=== PATIENT | female | born 1945 | race Caucasian/White ===

== ENCOUNTER 2024-12-15 20:04 | Inpatient (IN) | payer OTHER, SELFPAY ==
[2024-12-15] VITALS (9 sets, daily range): BP systolic 115–142; BP diastolic 48–78; BMI 25.4; BMI 25.5
--- NOTE | 2024-12-15 17:17 | ED.GENMED ---
History of Present Illness
General
Chief Complaint: Fall
Source: patient and family
Exam Limitations: none
Time Seen by Provider: 12/15/24 17:08
Nursing documentation reviewed up to this point in time: agreed with
History of Present Illness
History of Present Illness:
Pleasant 79-year-old female presents to the emergency department with right hip pain. She states that she had a mechanical fall. Patient was walking up steps with a glass of lemonade in her hand that she missed the first step. She did not want to
drop the lemonade so she fell. She is in town visiting family. Patient denies head injury or loss of consciousness. She reports no other pain. Patient does have a relative allergy to morphine. She states that 13 years ago when she got it she
became confused. She did have her gallbladder removed several years ago but is unsure of what type of pain relief she received. She states that she is willing to try Dilaudid for pain control. Denies fever, chills, nausea or vomiting.
Review of Systems
Review of Systems
Allergies reviewed?: Yes
Other source history: family
All Other Systems: ROS reviewed and negative except as documented in HPI and ROS
Constitutional: Reports no symptoms
EENT: Reports no symptoms
Respiratory: Reports no symptoms
Cardiac: Reports no symptoms
ABD/GI: Reports no symptoms
: Denies difficulty voiding
Musculoskeletal: Reports joint pain and muscle pain
Skin: Reports no symptoms
Neurological: Reports no symptoms
Endocrine: Reports no symptoms
Hematologic/Lymphatic: Reports no symptoms
Psychiatric: Reports anxiety
Phy Exam
General Physical Exam
General Presentation: moderate distress
General Skin: warm and dry
General Habitus: normal
General Mental: alert
General Hydration: appears well hydrated
ENT Exam
ENT Exam: EOMI, pharynx normal, neck supple and normocephalic
Eye Exam
Eye Exam: PERRL, cornea clear and conjunctiva normal
Cardiovascular Exam
Cardiovascular Exam: regular rate/rhythm and no edema
Pulmonary Exam
Pulmonary Exam: lungs clear, no respiratory distress, no rales, no crackles, no rhonchi, no stridor, no wheezing and no cough
Gastrointestinal Exam
Gastrointestinal Exam: normal bowel sounds, non tender, soft, no organomegaly, no pulsatile mass and non distended
Neurological Exam
Neurological Exam: alert, oriented x3, no motor deficits and speech normal
Musculoskeletal Exam
Musculoskeletal Exam: full ROM and no edema
Skin Exam
Skin Exam: normal color, warm/dry, no rash and no petechia
Psychiatric Exam
Psychiatric Exam: normal mood/affect
Course
Orders/Labs/Results
Orders:
Orders
12/15/24 17:16
HYDROmorphone [Dilaudid] 0.25 mg IV NOW STA
12/15/24 17:17
Hip, Right 2-3 Views [CR Hip - RT w/wo Pel 2-3 Vw*] Urgent
Comment:
Reason For Exam: pain after a fall
Include a pelvis x-ray?: Yes
12/15/24 17:18
Electrocardiogram (*1) Urgent
Reason for Study: PreOp
EKG- Treatment ONCE
12/15/24 17:20
Ondansetron Injectable [Zofran] 4 mg .ROUTE .STK-MED ONE
12/15/24 17:22
Ondansetron Injectable [Zofran] 4 mg IV NOW STA
12/15/24 17:23
Complete Blood Count/With Diff Urgent
Comprehensive Metabolic Panel Urgent
PTT Urgent
Prothrombin Time Urgent
12/15/24 17:58
0.9% Sodium Chloride 1000 ml [Nss] 1,000 ml IV 250 mls/hr
12/16/24 Breakfast
NPO
Allow oral meds: Yes
Allow clear liquids: 4hrs prior to procedure
NPO with Ice Chips: Yes
Comment: may have unrestricted clear liquid up to 4 hrs prior to scheduled procedure
Abnormal Lab Results
12/15/24
17:23
RBC 3.38 L 10^6/uL
(4.20-5.40)
Hgb 10.5 L g/dL
(12.0-16.0)
Hct 31.0 L %
(37.0-47.0)
MCH 31.1 H pg
(27.0-31.0)
MPV 12.3 H fL
(7.4-10.4)
Abs Immat Gran (auto) 0.1 H 10^3/uL
(0-0.05)
Absolute Monos (auto) 0.8 H 10^3/uL
(0.1-0.6)
Immature Gran % 0.7 H %
(0-0.5)
BUN 25 H mg/dl
(7-17)
Creatinine 1.1 H mg/dL
(0.6-1.0)
Total Protein 5.4 L g/dl
(6.3-8.2)
12/15/24 17:23
12/15/24 17:23
Vital Signs
Initial and Last Documented VS:
Initial Vital Signs
BP
133/51
12/15/24 16:48
Last Documented Vital Signs
Temp Pulse Resp BP Pulse Ox
97.8 F 65 16 115/54 100
12/15/24 16:52 12/15/24 16:52 12/15/24 16:52 12/15/24 18:01 12/15/24 18:01
*Radiology
Radiology exam reviewed: radiology read reviewed (Comminuted mildly displaced intertrochanteric right femur fracture with mild varus angulation. No intra-articular extension or dislocation.)
*Critical Care Note
Total Time (30-74mins, 75-104mins- exclusive of procedures): Not Applicable
ED Attending Note
-
Portions of this chart may have been created with voice recognition software.� Occasional wrong word or��sound alike� substitutions may have occurred due to the inherent limitations of voice recognition software.
Discharge Plan
Departure
Patient Disposition: Admit
Date of Disposition: 12/15/24
Time of Disposition: 19:00
Admit to: Med/Surg
Presentation/result/management discussed w/ accepting MD/DO: Hospitalist
Patient with high blood pressure during this ER visit?: Yes
Condition: Fair
Discharge Problem:
Closed comminuted intertrochanteric fracture of femur
Prescriptions:
No Action
Unobtainable
0
Referrals:
Red Chen, [Family Provider] -
Interventions
Interventions:
*Risk Screen - Suicide Last Done: 12/15/24 16:52
*General Assessment Last Done: 12/15/24 16:52
*Neglect/Abuse Screening Last Done: 12/15/24 16:52
*ED- Fall Risk Assessment Last Done: 12/15/24 16:52
ED-Musculoskeletal Assessment Last Done: 12/15/24 16:52
ED- Neurological Assessment Last Done: 12/15/24 16:52
ED-Skin Assessment Last Done: 12/15/24 16:52
Discharge Date and Time
Print Language: KAZAKH
[2024-12-15] MEDS: DILAUDID 0.25 MG IV ×2 (17:26→19:43)
[2024-12-15] MEDS: ZOFRAN 4 MG IV (17:26)
[2024-12-15 17:43] LABS: % Basophils 0.5 % (0-2); % Eosinophils 0.7 % (0-6); % Immature Granulocytes 0.7 % (0-0.5); % Lymphocytes 28.1 % (20.5-51.1); % Monocytes 8.2 % (1.7-9.3); % Neutrophils 61.8 % (42.2-75.2); Absolute Basophils 0.1 10^3/uL (0-0.2); Absolute Eosinophils 0.1 10^3/uL (0-0.7); Absolute Immature Granulocytes 0.1 10^3/uL (0-0.05); Absolute Lymphocytes 2.7 10^3/uL (1.2-3.4); Absolute Monocytes 0.8 10^3/uL (0.1-0.6); Absolute Neutrophils 5.9 10^3/uL (1.4-6.5); Hemoglobin 10.5 g/dL (12.0-16.0); Mean Corp Hgb Conc. 33.9 g/dL (33.0-37.0); Mean Corpuscular Hgb 31.1 pg (27.0-31.0); Mean Corpuscular Volume 91.7 fL (81.0-99.0); Mean Platelet Volume 12.3 fL (7.4-10.4); Nucleated Red Blood Cells % 0 %; Platelet Count 134 10^3/uL (130-400); Red Blood Cell Count 3.38 10^6/uL (4.20-5.40); Red Cell Dist. Width 12.6 % (11.5-14.5); White Blood Cell Count 9.6 10^3/uL (4.8-10.8)
[2024-12-15 17:51] LABS: APTT 23.6 Sec (23.4-35.0); PT 13.5 Sec (11.4-14.6)
[2024-12-15 17:54] LABS: ALT (SGPT) 12 U/L (0-35); AST (SGOT) 20 U/L (14-36); Albumin 3.6 g/dl (3.5-5.0); Alkaline Phosphatase 43 U/L (38-126); Blood Urea Nitrogen 25 mg/dl (7-17); Calcium 8.6 mg/dl (8.4-10.2); Carbon Dioxide 28 mmol/L (22-30); Chloride 105 mmol/L (98-107); Estimated Creatinine Clearance 32 ml/min; Glucose 92 mg/dl (70-99); Potassium 3.9 mmol/L (3.5-5.1); Sodium 141 mmol/L (135-145); Total Bilirubin 0.5 mg/dl (0.2-1.3); Total Protein 5.4 g/dl (6.3-8.2); eGFR 51.43
[2024-12-15] MEDS: NSS 1000 IV (18:38)
--- NOTE | 2024-12-15 19:02 | HPS.HSE ---
Family Physician
-
Family Physician: Red Chen, DO
Chief Complaint
-
Fall and hip fracture
History of Present Illness
This is a 79-year-old female who has a past medical history of lymphoma for which she is on or oral oral suppressive agent twice daily, prior history of endometrial cancer status post hysterectomy and radiation who presents to the emergency
department from home following a mechanical fall while visiting our system.
Patient reports walking across a flight of stairs to was the home when she misjudged a step slipped and fell. She denied loss of consciousness. She is unsure what she is hit her head but did not think so. She has no headache. She denies any pain
in her head otherwise. She reports pain in her hip and had difficulty ambulating immediately afterwards.
Patient denies any other episodes of fall. She is not on any blood thinners.
On arrival in the emergency department she had a blood pressure of 115/54, pulse of 65 respiratory rate of 16 temperature of 97.8. She is satting 100% on room air.
ECG shows a normal sinus rhythm at a rate of 65.
CBC shows a white count of 9.6, hemoglobin 10.5, platelet count 134. Electrolytes were within normal range. BUN/creatinine were 25 and 1.1 with a glucose of 92.
The x-ray of the hip shows a right comminuted and mildly displaced intertrochanteric fracture of the right femur.
Medical History
Past Medical History
Past Medical History: Reports Cancer (Lymphoma, history of endometrial cancer)
Past Surgical History: Reports Gynocological (Status post hysterectomy) and Tonsilectomy
Social History
Tobacco: Non-smoker
Alcohol: None
Drug: None
Personal: Single
Living: Alone
Family History
Family History: Not pertinent
Allergies / Home Medications
Allergies reflects when Allergies were last updated in [facility].
Home Medications with original date entered in [facility]
Allergy/Medication List:
Allergies
Allergy/AdvReac Type Severity Reaction Status Date / Time
morphine Allergy Unknown Verified 12/15/24 16:51
Home Medications
Zanubrutinib 80 mg tablet, take 160 mg p.o. twice daily
Review of Systems
-
History Source: Patient
Constitutional: Reports No Symptoms
EENT: Reports No Symptoms
Respiratory: Reports No Symptoms
Cardiac: Reports No Symptoms
Abdomen/GI: Reports No Symptoms
: Reports No Symptoms
Musculoskeletal: Reports Joint Pain
Skin: Reports No Symptoms
Neurological: Reports No Symptoms
Endocrine: Reports No Symptoms
Hematologic/Lymphatic: Reports No Symptoms
Psych: Reports No Symptoms
Physical Exam
Vital Signs
Vital Signs
Temp Pulse Resp BP Pulse Ox
97.8 F 65 16 115/54 100
12/15/24 16:52 12/15/24 16:52 12/15/24 16:52 12/15/24 18:01 12/15/24 18:01
Physical Exam
General: Well Developed, Well Nourished and Pain
HEENT: NormoCephalic, Anicteric, Moist mucous membranes and Atraumatic
Respiratory: Clear
Cardiac: S1/S2 and Regular Rhythm
Breast: Deferred by me
GI: Soft, Non Tender, Non Distended and Normal Bowel Sounds
Rectal: Deferred by Provider
Genito-urinary: Deferred by me
Musculoskeletal: No Clubbing, No Cyanosis and No Edema
Skin: Warm
Neuro: AO x 3 and Nonfocal/grossly intact
Hematologic/Lymphatic: No Lymphadenopathy
Psych: Calm
Laboratory Results
-
12/15/24 17:23
12/15/24 17:23
Laboratory Results
PT 13.5 Sec (11.4-14.6) 12/15/24 17:23
INR 1.00 12/15/24 17:23
APTT 23.6 Sec (23.4-35.0) 12/15/24 17:23
Total Bilirubin 0.5 mg/dl (0.2-1.3) 12/15/24 17:23
AST 20 U/L (14-36) 12/15/24 17:23
ALT 12 U/L (0-35) 12/15/24 17:23
Alkaline Phosphatase 43 U/L (38-126) 12/15/24 17:23
Data Reviewed
-
Diagnostic Radiology: Report Reviewed by me
Medical Tests (Nuc Med, Echo, EKG etc): Image Personally Visualized and interpreted
Lab Data: Labs Reviewed by me
Old Records: Reviewed
Impression/Plan
-
IMPRESSION:
Patient is a 79-year-old female with a history of lymphoma currently on Zanubrutinib status post mechanical fall with right-sided comminuted, mild displaced intertrochanteric femoral fracture. There is no head strike. There was no loss of
consciousness. She is not on any blood thinners however on zanubrutinib
PLAN:
1. Hip Fracture 2/2 mechanical fall
- admit to med/surg
- npo after midnight
- no thinners
- pain control, no weight bearing for now
- DVT PPX with SCDs pending hip surgery
- discussed Zanubrutinib with heme/onc, to hold brent-operatively
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
- surgery consult
Full Code
--- NOTE | 2024-12-15 21:30 | PTCARENOTE ---
A 79F pt arrived from ED 21:14 post mechanical fall has a fx R femur, also has a scratch in the area of her R groin. PMH of lymphoma for which she is on or oral oral suppressive agent twice daily, prior history of endometrial cancer status post
hysterectomy and radiation. Pt is on a static overlay, bed is in a low position, pt is using a Purewick, she is NPO at midnight but is permitted to have oral meds and clears up to 4 hours before surgery. Pt took scheduled Tylenol & is using an ice
pack to her R hip, at this time she does not want any additional pain medication. Pt's call light is in reach and her care is ongoing.
[2024-12-15] MEDS: SENOKOT 17.2 MG PO (22:20)
[2024-12-15] MEDS: COLACE 100 MG PO (22:20)
[2024-12-15] MEDS: TYLENOL 650 MG PO (22:20)
[2024-12-16] VITALS (16 sets, daily range): BP systolic 59–122; BP diastolic 38–51
[2024-12-16] MEDS: TYLENOL 650 MG PO ×5 (00:26→21:35)
--- NOTE | 2024-12-16 05:59 | CON.ORTHO ---
Consultation
-
Date/Time Consultation Requested: December 29
Date/Time Consultation Performed: December 29
Requesting Provider: Horace
Performing Provider: Michelle Gottlieb
Reason for Consultation: Right hip fracture
Consultation - Orthopedics
History
History of Present Illness:
79-year-old female with PMH of lymphoma and endometrial cancer presented to the emergency department yesterday with right hip pain. Unfortunately the fall was mechanical. She is in town visiting family. Patient was walking up steps with a glass of
lemonade in her hand and missed the first step. Patient denies head injury or LOC. No prodrome. No prior right hip issues or injuries. Denies fevers or chills. Our orthopedic specialty team has been requested with regards to her right hip fracture
and for the consideration of surgical fixation.
Past Medical History:
Lymphoma
Endometrial cancer
Past Surgical History:
Hysterectomy
Tonsillectomy
Social History:
Tobacco: Non-smoker
Alcohol: None
Drug: None
Personal: Single
Living: Alone
Family History:
Not pertinent
ROS:
12 point negative except for those mentioned in HPI
Allergies / Home Medications
Allergy/AdvReac Type Severity Reaction Status Date / Time
morphine Allergy Unknown Verified 12/15/24 16:51
�Medication �Instructions �Recorded
zanubrutinib 80 mg capsule 160 mg PO BID 12/15/24
Vital Signs / Lab Results
Temp Pulse Resp BP Pulse Ox
98.2 F 71 17 124/51 100
12/15/24 23:14 12/15/24 23:14 12/15/24 23:14 12/15/24 23:14 12/15/24 23:14
12/15/24 17:23
12/15/24 17:23
Assessment / Plan
PE: Afeb. Bedrest. Right hip skin intact. A bit edematous. RLE short and externally rotated. generalize palpation of the right hip is painful. + logroll. Deferred range of motion due to known fracture. Right knee is nontender. Calf supple and
nontender. DNVI RLE
Xrays: Comminuted RIGHT IT fracture in slight varus
Impression: CHARLENE
Plan: At length discussion bedside with the patient yields her understanding to the nature of her RIGHT hip fracture. All nonoperative and operative management discussed, including the RBAs of each form of management. After discussing all the
associated risks of surgery she has elected to proceed. this will be arranged under the direction of Dr. Gottlieb as his and the OR's availability permits. Briefly discussed the postop and rehab course associated with proposed surgery, and will
appreciate CM's assistance with disposition post hospital course. Patient is and will remain NPO for now, anticipating OR later today for gamma nail fixation of her RIGHT femur, assuming medical optimization and clearance for the procedure.
Operative site has been marked as the RIGHT hip. Surgical and blood consents have been signed and placed to the patient's chart. T&S requeted. ABX OCTOR. Will follow..
[2024-12-16] MEDS: COLACE 100 MG PO ×2 (08:56→21:35)
[2024-12-16] MEDS: SENOKOT PO ×2 (08:56→09:00)
--- NOTE | 2024-12-16 09:41 | CM ---
Cm reviewed medical records. CM met with patient in room. Patient confirmed demographics. Patient lives independently in a second floor apartment with NO elevator access. Patient does have a history of VN for management of Pleurx. Patient has been
discharge from VN services. Patient does not have a history of SNF or DME. Patient is active with her PCP and uses [facility] for medication services.
CM discuss briefly discharge planning would depend on PT evaluations.. Of Note , patient is on twice a day PO chemotherapy for treatment of Lymphoma.
PLAN: Patient for OR today, pending clinical outcome and PT evaluations.
--- NOTE | 2024-12-16 10:28 | W.PN.HOSP.TC ---
Today's Communication/Plan
-
Medically cleared for gamma nail fixation of right femur.
Hold Brustanleya
Assessment / Plan
Assessment / Plan
Impression:
Patient is a 79-year-old female with a history of lymphoma currently on Zanubrutinib status post mechanical fall with right-sided comminuted, mild displaced intertrochanteric femoral fracture. There is no head strike. There was no loss of
consciousness. She is not on any blood thinners however on zanubrutinib
Right intratrochanteric femur fracture secondary to mechanical fall and osteoporosis.
Other conditions:
Lymphoma treated with Zanubrutinib ([facility]
History of endometrial carcinoma status post hysterectomy and radiation treatment.
Normocytic anemia hemoglobin 10.5 on presentation
Plan
Orthopedic input appreciated with plan for operative fixation of the right femur.
Patient is a 79 years old female with history of endometrial cancer and lymphoma on Brukinsa. Patient with no prior history of cardiovascular disorders, diabetes, renal insufficiency.
Revised cardiac risk index with no predictors of major cardiovascular complications
ECG reviewed. Normal sinus rhythm with no ischemic changes.
Patient is medically clear with no additional test/workup required prior to surgical intervention
As discussed jair Leigh perioperatively
Follow CBC monitoring anemia.
DVT prophylaxis: Currently mechanical and to be determined postoperatively.
Anticipated Discharge: > 48 hours
Subjective/Interval History
-
Date of Service: December 16, 2024
Objective Data
-
Vital Signs:
Vital Signs
Temp Pulse Resp BP Pulse Ox
97.8 F 63 16 121/46 100
12/16/24 07:06 12/16/24 07:06 12/16/24 07:06 12/16/24 07:06 12/16/24 07:06
I&O
12/15/24 12/16/24 12/17/24
06:59 06:59 06:59
Intake Total 490 / 490
Output Total 300 / 300
Balance 190 / 190
Physical Exam
-
General: Well Developed and No Apparent Distress
HEENT: Normocephalic, Atraumatic and Moist Mucous Membranes
Respiratory: Clear to Auscultation
Cardiac: Regular Rhythm and S1/S2; Negative Murmur, Rub or Gallop
GI: Soft, Nontender, Nondistended and Normal Bowel Sounds; Negative Organomegaly
Rectal: Deferred by Provider
Musculoskeletal: No Clubbing, No Cyanosis and No Edema
Skin: Negative Rash
Neuro: Nonfocal/Grossly Intact
[2024-12-16] MEDS: TYLENOL PO (17:56)
--- NOTE | 2024-12-16 19:51 | W.IMMPOSTOP ---
Surgical Immed Post Op Note
-
Primary Surgeon: Bjorn Gottlieb MD
Assisting Surgeon:
Pre-op Diagnosis: right hip intertrochanteric fracture
Post-op Diagnosis: right hip intertrochanteric fracture
Procedure Performed: right proximal femur intramedullary fixation
Anesthesia Type: general
Specimen / Cultures: none
Estimated Blood Loss: 100mL
Complications: none apparent
Operative Findings: intertrochanteric right hip fracture
Implants: [email or web address] Gamma 4 [id number] 125 degree intramedullary nail; 10.5x90mm lag screw; 5x35mm distal locking screw
Operative dictation #: [id number]
[2024-12-16] MEDS: SENOKOT 17.2 MG PO (21:35)
--- NOTE | 2024-12-16 22:28 | RR ---
A Rapid Response was called on this patient, please see Rapid Response form.
[2024-12-16 22:32] LABS: Glucose - Point of Care 143 mg/dl (70-99)
[2024-12-16] MEDS: NSS 500 IV (22:35)
--- NOTE | 2024-12-16 22:35 | W.PN.UPDATE ---
Update Note
Progress Note Update
MANAGER TRANSPORT
Patient is lethargic, hypotensive, bp during [employer]GER [employer] is 67/46, hr in 80s, SPO2 in 98%, afebrile. Bs 143. 1000cc NSS bolus given. Recheck bp 103/42, hr 88. Will start maintenance IVF rate @ 100cc/hr.
No sign of bleeding. Recheck hgb is 8.6
[2024-12-16] MEDS: NSS 1000 IV (22:45)
[2024-12-16 22:52] LABS: Hemoglobin 8.6 g/dL (12.0-16.0); Mean Corp Hgb Conc. 34.4 g/dL (33.0-37.0); Mean Corpuscular Hgb 31.6 pg (27.0-31.0); Mean Corpuscular Volume 91.9 fL (81.0-99.0); Mean Platelet Volume 12.2 fL (7.4-10.4); Platelet Count 145 10^3/uL (130-400); Red Blood Cell Count 2.72 10^6/uL (4.20-5.40); Red Cell Dist. Width 12.7 % (11.5-14.5); White Blood Cell Count 18.5 10^3/uL (4.8-10.8)
[2024-12-16 23:01] LABS: Blood Urea Nitrogen 30 mg/dl (7-17); Calcium 7.9 mg/dl (8.4-10.2); Carbon Dioxide 21 mmol/L (22-30); Chloride 111 mmol/L (98-107); Estimated Creatinine Clearance 22 ml/min; Glucose 140 mg/dl (70-99); Magnesium 2.2 mg/dl (1.6-2.3); Sodium 139 mmol/L (135-145); eGFR 32.81
[2024-12-17] VITALS (12 sets, daily range): BP systolic 90–118; BP diastolic 35–56
[2024-12-17] MEDS: TYLENOL 650 MG PO ×6 (01:15→20:50)
[2024-12-17] MEDS: ANCEF 5 IV ×2 (04:30→13:28)
--- NOTE | 2024-12-17 07:11 | W.PN.ORTHO ---
Today's Communication / Plan
-
POD#1 right hip IMN under the direction of Dr. Gottlieb
--Weight bearing as tolerated to right leg. Ambulate with walker
--PT/OT
--Recommend aspirin 325mg daily for DVT prophylaxis x4 weeks postop
--Continue with pain management as needed. Apply ice as needed
--Hemoglobin from AM labs still pending
--Maintain surgical dressing
--Case management consult for discharge planning
--Orthopedics will continue to follow along
Assessment
.
Distal Motor Intact: Yes
Dressing:
Clean, dry and intact.
Plan
.
Surgery / Date: Right hip IMN 12/16/24 Chery
DVT Prophylaxis: Aspirin
Activity:
Out of bed.
PT/OT
Subjective
.
.:
Patient resting comfortably in bed this morning. She does report that she feels tired. Currently, her pain is well controlled however she states that she has not moved much. Events overnight noted.
Vital Signs and Labs
.
Vital Signs and Labs:
Temp Pulse Resp BP Pulse Ox
97.2 F 90 16 107/56 100
12/17/24 03:00 12/17/24 03:00 12/17/24 03:00 12/17/24 03:00 12/17/24 03:00
PT 13.5 Sec (11.4-14.6) 12/15/24 17:23
INR 1.00 12/15/24 17:23
Physical Exam
-
Directed exam of right hip reveals surgical dressing in place. this is clean, dry, and intact. mild tenderness to lateral hip. thigh is soft and compressible. ROM deferred. able to plantarflex/dorsiflex the ankle. calf soft and nontender. NVI
distally
--- NOTE | 2024-12-17 07:30 | PTCARENOTE ---
Pt arrived from PACU at 21:42. Pt was drowsy & retaining 475mL of urine. Pt was S/C 600 urine was eliminated. Assessment done on pt, she took her night meds and right before I was leaving I noticed a change in LOC. A RR was called at 22:28. Please
check the report for v/s and other details. Pt was give a 1000 bolus of fluid and then another 500mL over the remainder of the night. After the bolus of IV fluid the pt b/p was within normal limits & her LOC went to her baseline AOx3. Pt was put on
tele & was NSR. Pt was temporally placed on 2LNC which was removed when she awoke in the morning. Pt was check hourly, her bed was in a low position, call light in reach, pain with movement. Pt was given scheduled Tylenol & ice, her pain remained at
an acceptable level for her. In the morning a b/s showed the pt was retaining 511mL, pt was again SC at 07:00 and 550mL was eliminated.
[2024-12-17 07:31] LABS: Blood Urea Nitrogen 31 mg/dl (7-17); Calcium 7.7 mg/dl (8.4-10.2); Carbon Dioxide 22 mmol/L (22-30); Chloride 112 mmol/L (98-107); Estimated Creatinine Clearance 26 ml/min; Glucose 146 mg/dl (70-99); Potassium 3.9 mmol/L (3.5-5.1); Sodium 139 mmol/L (135-145); eGFR 38.51
[2024-12-17 08:12] LABS: Hematocrit 22.6 % (37.0-47.0); Hemoglobin 7.6 g/dL (12.0-16.0); Mean Corp Hgb Conc. 33.6 g/dL (33.0-37.0); Mean Corpuscular Hgb 32.1 pg (27.0-31.0); Mean Corpuscular Volume 95.4 fL (81.0-99.0); Mean Platelet Volume 12.9 fL (7.4-10.4); Platelet Count 105 10^3/uL (130-400); Red Blood Cell Count 2.37 10^6/uL (4.20-5.40); Red Cell Dist. Width 12.7 % (11.5-14.5); White Blood Cell Count 13.8 10^3/uL (4.8-10.8)
[2024-12-17] MEDS: SENOKOT 17.2 MG PO (09:26)
[2024-12-17] MEDS: COLACE 100 MG PO (09:26)
[2024-12-17] MEDS: NSS 1000 IV (09:27)
[2024-12-17 10:18] LABS: Hemoglobin 7.2 g/dL (12.0-16.0)
--- NOTE | 2024-12-17 15:05 | W.PN.HOSP.TC ---
Today's Communication/Plan
-
Transfuse and follow hemoglobin.
CT of the femur.
Hold Brukinsa
Assessment / Plan
Assessment / Plan
Impression:
Patient is a 79-year-old female with a history of lymphoma currently on Zanubrutinib status post mechanical fall with right-sided comminuted, mild displaced intertrochanteric femoral fracture. There is no head strike. There was no loss of
consciousness. She is not on any blood thinners however on zanubrutinib
Right intratrochanteric femur fracture secondary to mechanical fall and osteoporosis.
Acute blood loss anemia
Other conditions:
Lymphoma treated with Zanubrutinib (Brukinsa)
History of endometrial carcinoma status post hysterectomy and radiation treatment.
Normocytic anemia hemoglobin 10.5 on presentation
Plan
Orthopedic input appreciated with plan for operative fixation of the right femur.
Patient is a 79 years old female with history of endometrial cancer and lymphoma on Brukinsa. Patient with no prior history of cardiovascular disorders, diabetes, renal insufficiency.
Revised cardiac risk index with no predictors of major cardiovascular complications
ECG reviewed. Normal sinus rhythm with no ischemic changes.
Patient is medically clear with no additional test/workup required prior to surgical intervention
Status post right proximal femoral intramedullary fixation on 12/[address] of the femur.
Aspirin for DVT prophylaxis
Physical therapy assessment
Acute blood loss anemia with hemoglobin trending down to sevens
Chronic anemia likely related to lymphoma with hemoglobin 10.5 upon presentation
Given hypotension and significant hemoglobin drop will transfuse 2 units of packed red blood cells per
Monitor closely.
CT of the femur pending.
Lymphoma
Medical records reviewed with hematology
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
Holding Brukinsa at least for 7 days postoperatively to avoid hemorrhagic complications
Anticipated Discharge: 24 - 48 hours
Subjective/Interval History
-
Date of Service: December 17, 2024
Objective Data
-
Labs:
Laboratory Results
12/17/24 12/17/24
06:11 09:57
WBC 13.8 H
Hgb 7.6 L 7.2 L
Hct 22.6 L
Plt Count 105 L D
Sodium 139
Potassium 3.9
Chloride 112 H
Carbon Dioxide 22
BUN 31 H
Creatinine 1.4 H
Glucose 146 H
Calcium 7.7 L
Vital Signs:
Vital Signs
Temp Pulse Resp BP Pulse Ox
99.2 F 89 16 95/41 99
12/17/24 14:24 12/17/24 14:24 12/17/24 14:24 12/17/24 14:24 12/17/24 14:24
I&O
12/16/24 12/17/24 12/18/24
06:59 06:59 06:59
Intake Total 490 / 490 1974 / 1974 0 / 0
Output Total 300 / 300 600 / 1150 550 / 550
Balance 190 / 190 1375 / 825 -550 / -550
Physical Exam
-
General: Well Developed and No Apparent Distress
HEENT: Normocephalic, Atraumatic and Moist Mucous Membranes
Respiratory: Clear to Auscultation
Cardiac: Regular Rhythm and S1/S2; Negative Murmur, Rub or Gallop
GI: Soft, Nontender, Nondistended and Normal Bowel Sounds; Negative Organomegaly
Rectal: Deferred by Provider
Musculoskeletal: No Clubbing, No Cyanosis and No Edema
Skin: Negative Rash
Neuro: Nonfocal/Grossly Intact
--- NOTE | 2024-12-17 15:48 | CM ---
Reviewed the chart notes and spoke with the patient at the bedside. PT/OT evaluation pended. Discuss with the patient that potentially she may need SNF/rehab prior to returning home. She resides alone in a second floor apartment with stairs to
enter. CM continues to be available to patient/family and is monitoring medical plan for needs at discharge.
Plan: Discharge most likely to SNF/rehab prior to transitioning back to home.
--- NOTE | 2024-12-17 16:43 | PN.CDI ---
CDI
- -
CDI:
Physician Documentation Request
Admit Date: 12/15/24 20:04
Dear Doctor,
Please review the following and provide your response in the progress notes.
Clinical Indicators:
Pt admitted with Right intratrochanteric femur fracture secondary to mechanical fall and osteoporosis.
Laboratory Tests
12/15/24 12/16/24 12/17/24
17:23 22:30 06:11
Creatinine 1.1 H 1.6 H 1.4 H
eGFR 51.43 32.81 38.51
Clarify which of the following accurately represents the patient's renal status:
Acute kidney injury (non-traumatic) - see criteria
Acute kidney injury with type, if appropriate on chronic kidney disease (CKD) - please provide stage - see criteria)
CKD, please provide stage - see criteria
Other
Criteria for ROSANNE*
1 Increase in serum creatinine by > or = to 0.3 mg/dL (> or = to 26.5 micromol/L) within 48 hours, OR
2 Increase in serum creatinine to > or = to 1.5 times baseline, which is known or presumed to have occurred within 7 days, OR
3 Urine volume < 0.5 nL/kg/hour for six hours
Stages of Chronic Kidney Disease*
Level Description GFR
G1 Normal or High >90
G2 Mildly decreased 60-89
G3a Mildly to moderately decreased 45-59
G3b Moderately to severely decreased 30-44
G4 Severely decreased 15-29
G5 Kidney failure <15
Use of terms such as suspected, likely, concern for, or probable (associated with a specific diagnosis that is being evaluated, monitored, or treated as if it exists) are acceptable and can be coded in the inpatient setting, when documented at the
time of discharge.
Thank you,
Rizwana Jules RN, BSN
CDI Specialist
Riley Text
Please use your independent medical judgment in providing your response.
*Source: Kidney Disease: Improving Global Outcomes (KDIGO) 2012
[2024-12-17] MEDS: ASPIRIN 325 MG PO (17:07)
[2024-12-17] MEDS: COLACE PO (20:50)
[2024-12-17] MEDS: SENOKOT PO (20:50)
[2024-12-18] VITALS (9 sets, daily range): BP systolic 98–133; BP diastolic 40–94; PULSE 85; O2SAT 97–98
[2024-12-18] MEDS: TUMS CHEWABLE TABLET 200 MG PO ×2 (00:06→04:28)
[2024-12-18] MEDS: TYLENOL PO (01:12)
[2024-12-18 01:51] LABS: Hematocrit 22.9 % (37.0-47.0); Hemoglobin 7.9 g/dL (12.0-16.0)
[2024-12-18] MEDS: NSS 1000 IV (04:24)
[2024-12-18] MEDS: TYLENOL 650 MG PO ×5 (04:25→20:58)
[2024-12-18 07:41] LABS: % Basophils 0.1 % (0-2); % Eosinophils 0.3 % (0-6); % Immature Granulocytes 0.7 % (0-0.5); % Lymphocytes 7.2 % (20.5-51.1); % Monocytes 6.3 % (1.7-9.3); % Neutrophils 85.4 % (42.2-75.2); Absolute Immature Granulocytes 0.1 10^3/uL (0-0.05); Absolute Lymphocytes 0.5 10^3/uL (1.2-3.4); Absolute Monocytes 0.5 10^3/uL (0.1-0.6); Absolute Neutrophils 6.3 10^3/uL (1.4-6.5); Blood Urea Nitrogen 39 mg/dl (7-17); Calcium 7.7 mg/dl (8.4-10.2); Carbon Dioxide 23 mmol/L (22-30); Chloride 108 mmol/L (98-107); Estimated Creatinine Clearance 27 ml/min; Glucose 123 mg/dl (70-99); Hematocrit 22.6 % (37.0-47.0); Mean Corp Hgb Conc. 35.4 g/dL (33.0-37.0); Mean Corpuscular Hgb 30.9 pg (27.0-31.0); Mean Corpuscular Volume 87.3 fL (81.0-99.0); Mean Platelet Volume 12.5 fL (7.4-10.4); Nucleated Red Blood Cells % 0 %; Platelet Count 83 10^3/uL (130-400); Potassium 3.8 mmol/L (3.5-5.1); Red Blood Cell Count 2.59 10^6/uL (4.20-5.40); Red Cell Dist. Width 14.7 % (11.5-14.5); Sodium 136 mmol/L (135-145); White Blood Cell Count 7.4 10^3/uL (4.8-10.8); eGFR 42.09
--- NOTE | 2024-12-18 08:13 | W.PN.ORTHO ---
Today's Communication / Plan
-
PT/OT
Aspirin for DVT/mechanical devices for DVT prophylaxis
Weight-bear as tolerated
Follow hemoglobin
long-term facility once medically stable
Follow-up with orthopedics 2 weeks postop
Assessment
.
Distal Motor Intact: Yes
Dressing:
Clean, dry and intact.
Plan
.
Surgery / Date: Right hip IMN 12/16/24 Chery
Activity:
Out of bed.
PT/OT
Discharge Plan: SNF
Subjective
.
.:
Patient resting comfortably.
Vital Signs and Labs
.
Vital Signs and Labs:
Lab Results
12/18/24 06:02
12/18/24 06:02
Temp Pulse Resp BP Pulse Ox
97.7 F 99 16 98/43 98
12/18/24 03:05 12/18/24 03:05 12/18/24 03:05 12/18/24 03:05 12/18/24 03:05
PT 13.5 Sec (11.4-14.6) 12/15/24 17:23
INR 1.00 12/15/24 17:23
[2024-12-18] MEDS: ASPIRIN 325 MG PO (09:22)
[2024-12-18] MEDS: COLACE PO ×2 (09:29→20:59)
[2024-12-18] MEDS: SENOKOT PO ×2 (09:30→20:59)
--- NOTE | 2024-12-18 10:51 | CM ---
Addendum entered by Cherise King 12/18/24 15:11:
Referrals sent to [facility], [facility], [facility] and [facility]. Await responses. [facility] may have bed monday, pending review of clinical information.
Original Note:
Patient seen at bedside, on 2 south. Patient states that her sister is coming today and she would like to go to SNF closer to [place] to be more accessible to sister. CM provided list of local SNF and Medicare.gov information; PAC data. CM will
review with patient and sister options for referrals. CM will continue to follow for discharge planning needs.
Plan; SNF pre PT recommendation
[2024-12-18] MEDS: ROXICODONE 5 MG PO ×2 (14:04→21:20)
--- NOTE | 2024-12-18 15:45 | W.PN.HOSP.TC ---
Addendum entered and electronically signed by Emil Forde MD 12/23/24 15:35:
Acute kidney injury likely related to transient hypotension and anemia.
Original Note:
Today's Communication/Plan
-
Postoperative hematoma with acute blood loss anemia on CT scan.
Appropriate response to transfusion with hemoglobin plateau at 8.
Hypotension resolved so wean off IV fluids.
Hold aspirin for DVT prophylaxis until 516. Resume if stable hemoglobin.
Hold Brukinsa for at least 7 to 10 days postoperatively to avoid hemorrhagic complications.
PT assessment and discharge planning.
Assessment / Plan
Assessment / Plan
Impression:
Patient is a 79-year-old female with a history of lymphoma currently on Zanubrutinib status post mechanical fall with right-sided comminuted, mild displaced intertrochanteric femoral fracture. There is no head strike. There was no loss of
consciousness. She is not on any blood thinners however on zanubrutinib
Right intratrochanteric femur fracture secondary to mechanical fall and osteoporosis.
Acute blood loss anemia
Other conditions:
Lymphoma treated with Zanubrutinib (Brukinsa)
History of endometrial carcinoma status post hysterectomy and radiation treatment.
Normocytic anemia hemoglobin 10.5 on presentation
Plan
Orthopedic input appreciated with plan for operative fixation of the right femur.
Patient is a 79 years old female with history of endometrial cancer and lymphoma on Brukinsa. Patient with no prior history of cardiovascular disorders, diabetes, renal insufficiency.
Revised cardiac risk index with no predictors of major cardiovascular complications
ECG reviewed. Normal sinus rhythm with no ischemic changes.
Patient is medically clear with no additional test/workup required prior to surgical intervention
Status post right proximal femoral intramedullary fixation on 12/16
Follow-up CT of the right femur with postoperative changes and adjacent hematoma
Resume aspirin for DVT prophylaxis if stable hemoglobin
Physical therapy assessment
Acute blood loss anemia with hemoglobin trending down to sevens
Chronic anemia likely related to lymphoma with hemoglobin 10.5 upon presentation
Status post transfusion 2 units of packed red blood cells with hemoglobin plateau at 8. Noted postoperative hematoma on CT scan
Monitor closely.
Lymphoma
Medical records reviewed with hematology
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
Holding Brukinsa at least for 7 days postoperatively to avoid hemorrhagic complications
Anticipated Discharge: 24 - 48 hours
Subjective/Interval History
-
Date of Service: December 18, 2024
Objective Data
-
Labs:
Laboratory Results
12/18/24
06:02
WBC 7.4
Hgb 8.0 L
Hct 22.6 L
Plt Count 83 L D
Sodium 136
Potassium 3.8
Chloride 108 H
Carbon Dioxide 23
BUN 39 H
Creatinine 1.3 H
Glucose 123 H
Calcium 7.7 L
Vital Signs:
Vital Signs
Temp Pulse Resp BP Pulse Ox
97.8 F 78 18 126/94 97
12/18/24 11:40 12/18/24 11:40 12/18/24 11:40 12/18/24 11:40 12/18/24 11:40
I&O
12/17/24 12/18/24 12/19/24
06:59 06:59 06:59
Intake Total 1974 1250 / 1250
Output Total 600 / 1150 1150 / 1150
Balance 1375 / 825 100 / 100
Physical Exam
-
General: Well Developed and No Apparent Distress
HEENT: Normocephalic, Atraumatic and Moist Mucous Membranes
Respiratory: Clear to Auscultation
Cardiac: Regular Rhythm and S1/S2; Negative Murmur, Rub or Gallop
GI: Soft, Nontender, Nondistended and Normal Bowel Sounds; Negative Organomegaly
Rectal: Deferred by Provider
Musculoskeletal: No Clubbing, No Cyanosis and No Edema
Skin: Negative Rash
Neuro: Nonfocal/Grossly Intact
[2024-12-18] MEDS: NSS IV (17:51)
[2024-12-18] MEDS: MAALOX 30 ML PO (21:20)
[2024-12-19] VITALS (7 sets, daily range): BP systolic 101–120; BP diastolic 37–66; PULSE 81–82; O2SAT 96
[2024-12-19] MEDS: TYLENOL PO ×2 (01:20→16:00)
[2024-12-19] MEDS: ROXICODONE 5 MG PO ×3 (04:58→20:11)
[2024-12-19] MEDS: TYLENOL 650 MG PO ×4 (04:58→20:12)
[2024-12-19] MEDS: IMODIUM 2 MG PO (05:38)
[2024-12-19 06:44] LABS: % Basophils 0.2 % (0-2); % Eosinophils 0.3 % (0-6); % Immature Granulocytes 0.8 % (0-0.5); % Lymphocytes 6.7 % (20.5-51.1); % Monocytes 8.9 % (1.7-9.3); % Neutrophils 83.1 % (42.2-75.2); Absolute Immature Granulocytes 0.1 10^3/uL (0-0.05); Absolute Lymphocytes 0.4 10^3/uL (1.2-3.4); Absolute Monocytes 0.5 10^3/uL (0.1-0.6); Absolute Neutrophils 4.9 10^3/uL (1.4-6.5); Hematocrit 21.9 % (37.0-47.0); Hemoglobin 7.6 g/dL (12.0-16.0); Mean Corp Hgb Conc. 34.7 g/dL (33.0-37.0); Mean Corpuscular Hgb 30.6 pg (27.0-31.0); Mean Corpuscular Volume 88.3 fL (81.0-99.0); Mean Platelet Volume 12.6 fL (7.4-10.4); Nucleated Red Blood Cells % 0 %; Platelet Count 85 10^3/uL (130-400); Red Blood Cell Count 2.48 10^6/uL (4.20-5.40); Red Cell Dist. Width 14.9 % (11.5-14.5)
[2024-12-19 06:51] LABS: Blood Urea Nitrogen 28 mg/dl (7-17); Calcium 7.6 mg/dl (8.4-10.2); Carbon Dioxide 25 mmol/L (22-30); Chloride 113 mmol/L (98-107); Estimated Creatinine Clearance 40 ml/min; Glucose 120 mg/dl (70-99); Potassium 4.1 mmol/L (3.5-5.1); Sodium 138 mmol/L (135-145); eGFR > 60.00
--- NOTE | 2024-12-19 07:49 | W.PN.UPDATE ---
Update Note
Progress Note Update
Ms. Martins is POD3 following her right hip IM nail performed by Dr. Gottlieb. She is resting comfortably in bed this morning, and denies any pain at present.
Directed exam of the right lower extremity reveals surgical dressing with slight strikethrough of blood. No significant tenderness about the hip. Thigh soft and compressible. Calf soft and nontender. Patient able to wiggle toes, plantar and
dorsiflex ankle. NVID.
Hgb 7.6 this AM.
79 yo F POD3 right hip IM nail under the direction of Dr. Gottlieb
--WBAT with assistive device. We appreciate the assistance of PT/OT.
--Recommend ASA/mechanical devices for DVT ppx.
--Pain control prn. Ice and elevation for edema control.
--Maintain surgical dressings until 7-10 days post-op. Staple removal at 2 weeks post-op. May reinforce or change as needed.
--Hgb 7.6 this AM. Continue to monitor.
--CM consult for dc planning. USP facility once medically stable
--Orthopedics will sign off for now. Please reach out with any additional orthopedic questions or concerns. Follow-up with orthopedics 2 weeks postop.
--- NOTE | 2024-12-19 10:38 | W.PN.HOSP.TC ---
Today's Communication/Plan
-
pain control
OOB/PT
Trend hgb
await placement
Assessment / Plan
Assessment / Plan
Impression:
Patient is a 79-year-old female with a history of lymphoma currently on Zanubrutinib status post mechanical fall with right-sided comminuted, mild displaced intertrochanteric femoral fracture. There is no head strike. There was no loss of
consciousness. She is not on any blood thinners however on zanubrutinib
Right intratrochanteric femur fracture secondary to mechanical fall and osteoporosis.
Acute blood loss anemia
ROSANNE vs. CKD vs.ROSANNE on CKD unclear stage
Other conditions:
Lymphoma treated with Zanubrutinib (Brukinsa)
History of endometrial carcinoma status post hysterectomy and radiation treatment.
Normocytic anemia hemoglobin 10.5 on presentation
Plan
Orthopedic input appreciated with plan for operative fixation of the right femur.
Patient is a 79 years old female with history of endometrial cancer and lymphoma on Brukinsa. Patient with no prior history of cardiovascular disorders, diabetes, renal insufficiency.
Revised cardiac risk index with no predictors of major cardiovascular complications
ECG reviewed. Normal sinus rhythm with no ischemic changes.
Patient is medically clear with no additional test/workup required prior to surgical intervention
Status post right proximal femoral intramedullary fixation on 12/16
Follow-up CT of the right femur with postoperative changes and adjacent hematoma
Resume aspirin for DVT prophylaxis if stable hemoglobin
Physical therapy assessment
Acute blood loss anemia with hemoglobin trending down to sevens
Chronic anemia likely related to lymphoma with hemoglobin 10.5 upon presentation
Status post transfusion 2 units of packed red blood cells with hemoglobin plateau at 8. Noted postoperative hematoma on CT scan
Monitor closely. Hg at 7.6 today.
Lymphoma
Medical records reviewed with hematology
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
Holding Brukinsa at least for 7 days postoperatively to avoid hemorrhagic complications
Cr elevated on admission downtrended now to 0.9.
Anticipated Discharge: Within 24 hours
Subjective/Interval History
-
Date of Service: December 19, 2024
states of hip pain
Objective Data
-
Labs:
Laboratory Results
12/19/24
06:14
WBC 6.0
Hgb 7.6 L
Hct 21.9 L
Plt Count 85 L
Sodium 138
Potassium 4.1
Chloride 113 H
Carbon Dioxide 25
BUN 28 H
Creatinine 0.9
Glucose 120 H
Calcium 7.6 L
Vital Signs:
Vital Signs
Temp Pulse Resp BP Pulse Ox
98.3 F 89 18 106/46 96
12/19/24 08:05 12/19/24 08:05 12/19/24 08:05 12/19/24 08:05 12/19/24 08:05
I&O
12/18/24 12/19/24 12/20/24
06:59 06:59 06:59
Intake Total 1250 / 1250 600 / 600
Output Total 1150 / 1150 1679 / 1679
Balance 100 / 100 -1079 / -1079
Physical Exam
-
General: Well Developed and No Apparent Distress
HEENT: Normocephalic, Atraumatic and Moist Mucous Membranes
Respiratory: Clear to Auscultation
Cardiac: Regular Rhythm and S1/S2; Negative Murmur, Rub or Gallop
GI: Soft, Nontender, Nondistended and Normal Bowel Sounds; Negative Organomegaly
Rectal: Deferred by Provider
Musculoskeletal: No Clubbing, No Cyanosis, No Edema and Other (R hip dressing noted)
Skin: Negative Rash
Neuro: Awake and Nonfocal/Grossly Intact
Psych: Calm
[2024-12-19] MEDS: ZOFRAN 4 MG IV (12:40)
--- NOTE | 2024-12-19 13:53 | CM ---
Addendum entered by Tonia Kendall RN 12/19/24 16:27:
Auth obtained obtained for 5 days; 12/20-12/23; NRD 12/24 to [phone]; Auth # [id number]
Addendum entered by Tonia Kendall RN 12/19/24 16:09:
CM spoke with the patient at bedside and sister via telephone. [facility] the patient based on patient providing her own chemo drug. Patient agreeable. Auth will be needed.
[facility]
Dr. Tipton
Original Note:
Reviewed the chart notes and spoke with the patient at the bedside. IMM reviewed. [facility] reviewing. CM continues to be available to patient/family and is monitoring medical plan for needs at discharge.
Plan: Discharge to SNF/rehab once bed secured and auth obtained.
[2024-12-19 18:46] LABS: COVID-19 Antigen Negative (Negative)
[2024-12-20] VITALS (9 sets, daily range): BP systolic 97–118; BP diastolic 36–56
[2024-12-20] MEDS: TYLENOL PO (01:43)
[2024-12-20] MEDS: TYLENOL 650 MG PO (04:37)
[2024-12-20 07:37] LABS: % Basophils 0.4 % (0-2); % Eosinophils 0.4 % (0-6); % Immature Granulocytes 1.2 % (0-0.5); % Lymphocytes 6.4 % (20.5-51.1); % Monocytes 9.6 % (1.7-9.3); Absolute Immature Granulocytes 0.1 10^3/uL (0-0.05); Absolute Lymphocytes 0.3 10^3/uL (1.2-3.4); Absolute Monocytes 0.5 10^3/uL (0.1-0.6); Absolute Neutrophils 4.3 10^3/uL (1.4-6.5); Hematocrit 20.8 % (37.0-47.0); Mean Corp Hgb Conc. 33.7 g/dL (33.0-37.0); Mean Corpuscular Hgb 30.3 pg (27.0-31.0); Nucleated Red Blood Cells % 0 %; Platelet Count 102 10^3/uL (130-400); Red Blood Cell Count 2.31 10^6/uL (4.20-5.40); Red Cell Dist. Width 14.4 % (11.5-14.5); White Blood Cell Count 5.2 10^3/uL (4.8-10.8)
[2024-12-20] MEDS: TYLENOL 1000 MG PO ×3 (09:54→21:04)
--- NOTE | 2024-12-20 11:30 | W.PN.HOSP.TC ---
Today's Communication/Plan
-
transfuse 1u of prbc
repeat h/hl later
trend hgb
pain control
Assessment / Plan
Assessment / Plan
Impression:
Patient is a 79-year-old female with a history of lymphoma currently on Zanubrutinib status post mechanical fall with right-sided comminuted, mild displaced intertrochanteric femoral fracture. There is no head strike. There was no loss of
consciousness. She is not on any blood thinners however on zanubrutinib
Right intratrochanteric femur fracture secondary to mechanical fall and osteoporosis.
Acute blood loss anemia
Right hip post op hematomas
ROSANNE vs. CKD vs.ROSANNE on CKD unclear stage
Post op acute urinary retention
Other conditions:
Lymphoma treated with Zanubrutinib (Brukinsa)
History of endometrial carcinoma status post hysterectomy and radiation treatment.
Normocytic anemia hemoglobin 10.5 on presentation
Plan
Orthopedic input appreciated with plan for operative fixation of the right femur.
Patient is a 79 years old female with history of endometrial cancer and lymphoma on Brukinsa. Patient with no prior history of cardiovascular disorders, diabetes, renal insufficiency.
Revised cardiac risk index with no predictors of major cardiovascular complications
ECG reviewed. Normal sinus rhythm with no ischemic changes.
Patient is medically clear with no additional test/workup required prior to surgical intervention
Status post right proximal femoral intramedullary fixation on 12/16
Follow-up CT of the right femur with postoperative changes and adjacent hematoma
Resume aspirin for DVT prophylaxis once hemoglobin stabilizes
Physical therapy assessment
Acute blood loss anemia with hemoglobin trending down to sevens
Chronic anemia likely related to lymphoma with hemoglobin 10.5 upon presentation
Noted postoperative hematoma on CT scan
Monitor closely. Hg dropped again to 7. will transfuse additional 1u of PRBC ordered for today.
already received 2u of PRBC so far.
Lymphoma
Medical records reviewed with hematology
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
Holding Brukinsa at least for 7 days postoperatively to avoid hemorrhagic complications
Cr elevated on admission downtrended now to 0.9.
Bal cather placed for retention post op. TOV here or at SNF.
PT/OT-Plan for SNF hopefully in 24h.
Anticipated Discharge: Within 24 hours
Subjective/Interval History
-
Date of Service: December 20, 2024
Pt w/drop in hgb earlier today
states of ongoing R hip pain
Objective Data
-
Labs:
Laboratory Results
12/20/24
06:12
WBC 5.2
Hgb 7.0 L
Hct 20.8 L*
Plt Count 102 L
Vital Signs:
Vital Signs
Temp Pulse Resp BP Pulse Ox
99.0 F 88 18 97/36 97
12/20/24 11:17 12/20/24 11:17 12/20/24 11:17 12/20/24 11:17 12/20/24 11:17
I&O
12/19/24 12/20/24 12/21/24
06:59 06:59 06:59
Intake Total 600 / 600 1260 / 1260
Output Total 1679 / 1679 900 / 900
Balance -1079 / -1079 360 / 360
Physical Exam
-
General: Well Developed and No Apparent Distress
HEENT: Normocephalic, Atraumatic and Moist Mucous Membranes
Respiratory: Clear to Auscultation
Cardiac: Regular Rhythm and S1/S2; Negative Murmur, Rub or Gallop
GI: Soft, Nontender, Nondistended and Normal Bowel Sounds; Negative Organomegaly
Rectal: Deferred by Provider
Musculoskeletal: No Clubbing, No Cyanosis, No Edema and Other (R hip dressing noted)
Skin: Negative Rash
Neuro: Awake and Nonfocal/Grossly Intact
Psych: Calm
Data Reviewed
-
Total Time Spent with Patient (in minutes): 56
--- NOTE | 2024-12-20 11:32 | CM ---
Addendum entered by Merlin Lala 12/20/24 15:09:
[facility] requested COVID test on the day of discharge.
Original Note:
CM following re: discharge planning.
Reviewed pt's chart, met with pt.
According to MD pt is not medically stable to be discharged today due to low Hmg. Per MD pt most likely will be ready for discharge tomorrow.
Obtained authorization noted. Pt approved for 5 initial days; 12/20-12/23; NRD 12/24 to [phone]; Auth # [id number]
CM spoke to [facility] director of logistics Roxanna [phone] and she confirmed that pt will be accepted on Monday or Monday is medically stable. [facility] director of logistics Roxanna requested to call her on the weekend when
pt is medically stable to coordinate discharge/admission process [phone].
[facility] nursing report: [phone]
Discharge instructions fax: [phone]
D/C plan: [facility] when medically stable.
CM will follow to assist pt with discharge to [facility].
--- NOTE | 2024-12-20 17:32 | PTCARENOTE ---
One unit of PRBC's transfused w/o difficulty. VSS, Temp. 99.8 as per pre transfusion temp. No CP, chills, or pain at this time. Call scruggs is within reach.
[2024-12-20 19:58] LABS: % Basophils 0.4 % (0-2); % Eosinophils 0.8 % (0-6); % Immature Granulocytes 0.9 % (0-0.5); % Lymphocytes 6.1 % (20.5-51.1); % Monocytes 9.3 % (1.7-9.3); % Neutrophils 82.5 % (42.2-75.2); Absolute Immature Granulocytes 0.1 10^3/uL (0-0.05); Absolute Lymphocytes 0.3 10^3/uL (1.2-3.4); Absolute Monocytes 0.5 10^3/uL (0.1-0.6); Absolute Neutrophils 4.4 10^3/uL (1.4-6.5); Hemoglobin 8.3 g/dL (12.0-16.0); Mean Corp Hgb Conc. 34.6 g/dL (33.0-37.0); Mean Corpuscular Hgb 31.1 pg (27.0-31.0); Mean Corpuscular Volume 89.9 fL (81.0-99.0); Mean Platelet Volume 11.5 fL (7.4-10.4); Nucleated Red Blood Cells % 0 %; Platelet Count 118 10^3/uL (130-400); Red Blood Cell Count 2.67 10^6/uL (4.20-5.40); Red Cell Dist. Width 14.5 % (11.5-14.5); White Blood Cell Count 5.3 10^3/uL (4.8-10.8)
[2024-12-20] MEDS: MAALOX 30 ML PO (21:08)
[2024-12-21 03:22] VITALS: BP 104/63
[2024-12-21 07:15] LABS: % Basophils 0.3 % (0-2); % Eosinophils 0.8 % (0-6); % Immature Granulocytes 1.3 % (0-0.5); % Lymphocytes 8.1 % (20.5-51.1); % Monocytes 12.1 % (1.7-9.3); % Neutrophils 77.4 % (42.2-75.2); Absolute Eosinophils 0.1 10^3/uL (0-0.7); Absolute Immature Granulocytes 0.1 10^3/uL (0-0.05); Absolute Lymphocytes 0.5 10^3/uL (1.2-3.4); Absolute Monocytes 0.7 10^3/uL (0.1-0.6); Absolute Neutrophils 4.7 10^3/uL (1.4-6.5); Hematocrit 24.5 % (37.0-47.0); Hemoglobin 8.3 g/dL (12.0-16.0); Mean Corp Hgb Conc. 33.9 g/dL (33.0-37.0); Mean Corpuscular Hgb 30.3 pg (27.0-31.0); Mean Corpuscular Volume 89.4 fL (81.0-99.0); Mean Platelet Volume 11.6 fL (7.4-10.4); Nucleated Red Blood Cells % 0 %; Platelet Count 132 10^3/uL (130-400); Red Blood Cell Count 2.74 10^6/uL (4.20-5.40); Red Cell Dist. Width 14.4 % (11.5-14.5); White Blood Cell Count 6.1 10^3/uL (4.8-10.8)
[2024-12-21 08:05] VITALS: BP 118/57
[2024-12-21] MEDS: TYLENOL 1000 MG PO ×2 (08:45→16:14)
--- NOTE | 2024-12-21 09:14 | W.PN.HOSP.TC ---
Addendum entered and electronically signed by Darrian Seaman MD 12/21/24 13:52:
Addendum
Discharge planning discussed with caseworker intake. COVID test is negative
Total discharge time spent to see the patient, examine the patient, review data and lab result, discuss discharge plan with patient and caseworker intake/nursing staff around 65 minutes.
Addendum entered and electronically signed by Darrian Seaman MD 12/21/24 11:11:
ROSANNE
resolving
Original Note:
Today's Communication/Plan
-
discharge
Assessment / Plan
Assessment / Plan
Physical Exam
-
General: not in acute distress, frail, chronically ill looking
HEENT: Normocephalic, Atraumatic and Moist Mucous Membranes
Respiratory: Clear to Auscultation
Cardiac: Regular Rhythm and S1/S2;
GI: Soft, Nontender, Nondistended and Normal Bowel Sounds;
Rectal: no rectal bleeding
Musculoskeletal: No Clubbing, No Cyanosis, No Edema and Other (R hip dressing noted)
Skin: Negative Rash
Neuro: Awake and Nonfocal/Grossly Intact
Psych: Calm
Impression:
Patient is a 79-year-old female with a history of lymphoma currently on Zanubrutinib status post mechanical fall with right-sided comminuted, mild displaced intertrochanteric femoral fracture. There is no head strike. There was no loss of
consciousness. She is not on any blood thinners however on zanubrutinib
Right intratrochanteric femur fracture secondary to mechanical fall and osteoporosis.
Acute blood loss anemia
Right hip post op hematomas
ROSANNE vs. CKD vs.ROSANNE on CKD unclear stage
Post op acute urinary retention
Other conditions:
Lymphoma treated with Zanubrutinib (Brukinsa)
History of endometrial carcinoma status post hysterectomy and radiation treatment.
Normocytic anemia hemoglobin 10.5 on presentation
Plan
Orthopedic input appreciated with plan for operative fixation of the right femur.
Patient is a 79 years old female with history of endometrial cancer and lymphoma on Brukinsa. Patient with no prior history of cardiovascular disorders, diabetes, renal insufficiency.
Revised cardiac risk index with no predictors of major cardiovascular complications
ECG reviewed. Normal sinus rhythm with no ischemic changes.
Patient is medically clear with no additional test/workup required prior to surgical intervention
Status post right proximal femoral intramedullary fixation on 12/16
Follow-up CT of the right femur with postoperative changes and adjacent hematoma
Resume aspirin for DVT prophylaxis once hemoglobin stabilizes
Physical therapy assessment
Acute blood loss anemia
Chronic anemia likely related to lymphoma with hemoglobin 10.5 upon presentation
Noted postoperative hematoma on CT scan
s/p 3 units of PRBC so far.
Lymphoma
Medical records reviewed with hematology
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
Holding Brukinsa at least for 7 days postoperatively to avoid hemorrhagic complications
Cr elevated on admission downtrended now to 0.9.
Bal cather placed for retention post op. TOV here or at SNF.
PT/OT-Plan for SNF hopefully in 24h.
Total time spent to see the patient, examine the patient, review data and lab results, discuss treatment plan with patient, nursing staff around 55 minutes
Anticipated Discharge: Today
Subjective/Interval History
-
Date of Service: December 21, 2024
No chest pain
Complains of aches, mostly in lower and mid back
Objective Data
-
Labs:
Laboratory Results
12/21/24
06:03
WBC 6.1
Hgb 8.3 L
Hct 24.5 L
Plt Count 132
Vital Signs:
Vital Signs
Temp Pulse Resp BP Pulse Ox
99.2 F 95 15 118/57 93
12/21/24 08:05 12/21/24 08:05 12/21/24 08:05 12/21/24 08:05 12/21/24 08:05
I&O
12/20/24 12/21/24 12/22/24
06:59 06:59 06:59
Intake Total 1260 / 1260 690 / 690
Output Total 900 / 900 800 / 800
Balance 360 / 360 -110 / -110
--- NOTE | 2024-12-21 11:25 | CM ---
KENNY spoke with [facility]. OK to accept pt today. Already got auth info.
Same day Covid pending.
Plan-call back Roxanna with transport time once confirmed. Spoke with RN Faith cabrera at facility, aware of pt's arrival today pending covid result.
[phone].
[2024-12-21 11:35] VITALS: BP 105/48
--- NOTE | 2024-12-21 11:56 | CM ---
Pt dc to [facility] today, transport confirmed for 3pm.
Met with pt, she is in agreement.
Spoke with sister, she is also in agreement, she will go to pt's home to gather belongings and meet at facility later.
[2024-12-21 12:30] LABS: COVID-19 Antigen Negative (Negative)
--- NOTE | 2024-12-21 13:38 | W.DCSUMMARY ---
Discharge Summary
Discharge Data
Date of Admission: 12/15/24
Date of Discharge: 12/21/24
-
Pending Results: No
Hospital Course
79 years old female presented to the emergency department following a mechanical fall. She did not have head trauma. She sustained comminuted right femur fracture. She was evaluated by orthopedic doctor and recommended surgery. She had right
proximal femur intramedullary fixation by Dr. Gottlieb on 12/16 without complications. Patient has history of lymphoma, endometrial carcinoma and chronic anemia. She had acute blood loss anemia in addition to chronic anemia history. She was given
total of 3 units of blood transfusion with hemoglobin around 8 upon discharge. She had acute kidney injury but resolved with creatinine 0.9 upon discharge. She remained hemodynamically stable. Patient was evaluated by physical therapy recommended
half-way facility placement. Orthopedic doctor recommended aspirin 325 mg dose for DVT prophylaxis. Patient was evaluated by case management and was discharged to SNF in a stable condition.
Discharge Plan
-
Patient Disposition: Detention/SNF
Discharge Diagnosis/Procedures: Right intratrochanteric femur fracture secondary to mechanical fall and osteoporosis. Aspirin for DVT prophylaxis recommended by Ortho. Prophylactic Protonix.
Acute blood loss anemia status post blood transfusion of 3 units. Known chronic anemia due to Lymphoma
ROSANNE, resolved.
Condition: Fair
Diet: Regular
Activity: With assistance and As tolerated
Driving Restrictions: Not until seen by your Dr
Blood Work: cbc and BMP in 5 days
Activity Restrictions/Additional Instructions:
-Maintain surgical dressings until 7-10 days post-op. Staple removal at 2 weeks post-op. May reinforce or change as needed.
Referrals:
Bjorn Gottlieb MD [Active] - in two weeks
Red Chen DO [Family Provider] - in less than 1 week
Prescriptions:
New
aspirin 325 mg Tablet
325 mg PO DAILY Qty: 28 0RF
acetaminophen 325 mg Tablet
650 mg PO Q4HPRN PRN (Reason: mild to mod pain) Qty: 10 0RF
oxycodone 5 mg Tablet
5 mg PO BIDPRN PRN (Reason: severe pain) Qty: 10 0RF
pantoprazole [Protonix] 40 mg tablet,delayed release (DR/EC)
40 mg PO DAILY Qty: 30 0RF
Discontinued
zanubrutinib 80 mg Capsule
160 mg PO BID
Discharge Orders:
Discharge Patient (As Directed); Ordered 12/21/24
Ordered By: Darrian Seaman
Discharge Date and Time
Discharge Date/Time: 12/21/24 16:30
Print Language: THAI
[2024-12-21 15:20] VITALS: BP 117/51
== END 2024-12-21 16:30 | DRG 481 ==
LOC: 2 SOUTH 20:04
PROVIDERS: Hospitalist; Internal Medicine; Nurse Practitioner Family; ADMITTING PHYSICIAN Internal Medicine; ATTENDING PHYSICIAN Internal Medicine; CONSULT PHYSICIAN Student in an Organized Health Care Education/Training Program; EMERGENCY PHYSICIAN Student in an Organized Health Care Education/Training Program; FAMILY PHYSICIAN Family Medicine
PROC: 0QS806Z Reposition Right Femoral Shaft with Intramedullary Internal Fixation Device, Open Approach (ICD-10-PCS; 2024-12-16)
PROC: 30233N1 Transfusion of Nonautologous Red Blood Cells into Peripheral Vein, Percutaneous Approach (ICD-10-PCS; 2024-12-17)
DX: M80.051A Age-related osteoporosis with current pathological fracture, right femur, initial encounter for fracture (principal); D62 Acute posthemorrhagic anemia; N17.9 Acute kidney failure, unspecified; M96.840 Postprocedural hematoma of a musculoskeletal structure following a musculoskeletal system procedure; Z11.52 Encounter for screening for COVID-19
CPT/HCPCS: 73502; 73700; 76000; 80048; 80053; 82962; 83735; 85014; 85018; 85025; 85027; 85610; 85730; 86850; 86900; 86901; 86920; 87811; 93005; 96374; 96375; 97163; 97167; 97530; 97535; 99285; P9016